=== PATIENT | female | born 1975 | race Caucasian/White ===

== ENCOUNTER → 2020-08-09 12:54 | Outpatient (BNVA) | payer OTHER, SELFPAY | PROVIDERS: PCP Internal Medicine; Visit Provider Surgery | DX: R22.2 Localized swelling, mass and lump, trunk (principal) | CPT/HCPCS: 99202 ==

== ENCOUNTER 2020-08-10 10:37 | Outpatient (REF) | payer OTHER, SELFPAY ==
[2020-08-10 14:01] LABS: MANUAL DIFF FLAG NO
[2020-08-10 14:12] LABS: Basophils Absolute Auto 0.1 X10*3/uL (0.0-0.2); Basophils Percent Auto 0.9 % (0-2); Eosinophils Absolute Auto 0.4 X10*3/uL (0.0-0.4); Eosinophils Percent Auto 6.3 % (0-4); Hematocrit 36.5 % (37-47); Hemoglobin 11.8 g/dl (12.0-16.0); Imm Gran Abs Auto 0.01 X10*3/uL (0.00-0.03); Imm Gran Pct Auto 0.2 % (0.0-0.4); Lymphocytes Percent Auto 34.7 % (20-40); Mean Corpuscular HGB Conc 32.3 g/dl (31.0-35.0); Mean Corpuscular Hemoglobin 30.4 pg (27.0-33.0); Mean Corpuscular Volume 94.1 fL (80-98); Mean Platelet Volume 9.7 fL (9.4-12.3); Monocytes Absolute Auto 0.5 X10*3/uL (0.1-1.2); Monocytes Percent Auto 8.8 % (2-11); Neutrophils Absolute Auto 2.9 X10*3/uL (2.0-8.3); Neutrophils Percent Auto 49.1 % (45-73); Platelet Count 338 X10*3/uL (160-400); Red Blood Count 3.88 X10*6/uL (4.20-5.50); Red Cell Distribution Width 13.8 % (11.0-16.0); White Blood Count 5.9 X10*3/uL (4.8-10.8)
[2020-08-10 14:35] LABS: Alanine Aminotransferase 31 U/L (0-31); Anion Gap 12 (12-20); Aspartate Amino Transferase 25 U/L (5-31); Blood Urea Nitrogen 18 mg/dL (9-16); Calcium 8.8 mg/dL (8.4-10.2); Carbon Dioxide 26 mmol/L (22-29); Chloride 105 mmol/L (96-108); Cholesterol 204 mg/dL; Estimated Glomerular Filt Rate > 60; Glucose Fasting 87 mg/dL (60-99); HDL Cholesterol 71 mg/dL; LDL Cholesterol Calculated 122 mg/dl; Potassium 4.3 mmol/L (3.3-5.1); Sodium 139 mmol/L (135-145); Triglycerides 58 mg/dL
[2020-08-10 14:43] LABS: TSH reflex Free T4 1.62 uIU/mL (0.32-4.0)
[2020-08-13 10:52] LABS: TS Negative Control Passed; TS Panel A 2; TS Panel B 7; TS Positive Control Passed; TSpotTB BORDERLINE (SeeBelow)
== END 2020-08-10 10:38 | disposition home or self-care (01) ==
LOC: HO.HMGCLDS 10:37
PROVIDERS: PCP Internal Medicine; Visit Provider Internal Medicine
DX: Z00.01 Encounter for general adult medical examination with abnormal findings (principal); K21.9 Gastro-esophageal reflux disease without esophagitis; R76.11 Nonspecific reaction to tuberculin skin test without active tuberculosis; I10 Essential (primary) hypertension
CPT/HCPCS: 36415; 80048; 80061; 84443; 84450; 84460; 85025; 86481

== ENCOUNTER 2020-08-16 13:55 | Outpatient (REF) | payer OTHER, SELFPAY ==
--- NOTE | ~2020-08-16 | XR_ITS ---
EXAMINATION: XR CHEST CLINICAL INFORMATION: Nonspecific reaction to tuberculin skin test COMPARISON: None TECHNIQUE: 2 views of the chest were obtained. FINDINGS: The lungs are well expanded. There is no focal consolidation, edema, or effusion. No pneumothorax. The cardiomediastinal silhouette is within normal limits. No acute osseous abnormality. XR/XR chest 2V IMPRESSION: Clear lungs.
== END 2020-08-16 13:56 | disposition home or self-care (01) ==
LOC: HO.XRAY 13:55
PROVIDERS: PCP Internal Medicine; Visit Provider Internal Medicine
DX: R76.11 Nonspecific reaction to tuberculin skin test without active tuberculosis (principal)
CPT/HCPCS: 71046

== ENCOUNTER 2020-08-21 13:00 | Outpatient (RCR) | payer OTHER, SELFPAY | END 2020-10-10 12:00 | disposition other institution (70) | LOC: HO.OT 13:00 | PROVIDERS: PCP Internal Medicine; Visit Provider Internal Medicine | DX: M77.01 Medial epicondylitis, right elbow (principal) | CPT/HCPCS: 97033; 97110; 97140; 97165 ==

== ENCOUNTER → 2020-09-11 07:37 | Outpatient (BNVA) | payer OTHER, SELFPAY | PROVIDERS: PCP Internal Medicine; Visit Provider Physician Assistant | DX: K21.9 Gastro-esophageal reflux disease without esophagitis (principal) | CPT/HCPCS: Q3014 ==

== ENCOUNTER 2020-10-12 12:55 | Day surgery (SDC) | payer OTHER, SELFPAY ==
--- NOTE | 2020-10-10 14:20 | HO.ANESPROP2 ---
Documented by User: Yamileth Hinton 10/10/20 14:21 HPI - Anesthesia Eval Consult details Narrative: 45yo F for Upper Endoscopy PMFSH Active Problems Active Problems: All Active Problems (Updated 09/11/20 @ 08:23 by Tram Julio PA-C) Muscle spasm (Acute) Subcutaneous mass of back (Acute) Nodule of skin of both lower extremities (Acute) Lump of skin of back (Acute) Positive PPD, treated (Acute) H/O cervical polypectomy (Acute) Breast calcification, right (Acute) Medial epicondylitis, right elbow (Acute) Encounter for general adult medical examination with abnormal findings (Acute) Chronic GERD (Acute) Past Medical History Medical History Breast calcification, right Chronic GERD COVID-19 virus infection Lump of skin of back Medial epicondylitis, right elbow Nodule of skin of both lower extremities Positive PPD, treated Subcutaneous mass of back Family History Family History Mother No problems noted. Father Hx of arterial ischemic stroke Hypertension Hyperlipemia Diabetes Surgical History Surgical History H/O cervical polypectomy Social History Social History Household Members: Significant Other Alcohol intake: current Alcohol intake frequency: holidays/special occasions only Patient Tobacco Use Status: Never used Tobacco Use of substances other than those prescribed or required for medical reasons: No Are you DNR?: No Advance Directives: No Advance Directives Information Provided: Yes Recently lost weight without trying: No Nutrition Risks: No Nutritional Risk Patient : No FDLMP: 10/01/20 Current occupational status: employed 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 Meds Allergies Allergy/AdvReac Type Severity Reaction Status Date / Time No Known Allergies Allergy Verified 10/08/20 15:53 Home Medications Medication Instructions Recorded Confirmed Last Taken Type cholecalciferol (vitamin D3) 25 25 mcg PO DAILY 07/13/20 10/08/20 Unknown History mcg (1,000 unit) capsule magnesium 200 mg tablet 200 mg PO DAILY 07/13/20 10/08/20 Unknown History multivitamin 1 tab PO DAILY 07/13/20 10/08/20 Unknown History omeprazole 20 mg capsule,delayed 20 mg PO DAILY 07/13/20 10/08/20 10/12/20 07:15 History release Exam Exam Date and Time: October 10, 2020 142 Assessment and Plan Assessment Anesthesia Assessment: Chart Reviewed Documented by User: Lupe Christian 10/12/20 13:52 PMFSH Past Medical History Medical History Breast calcification, right Chronic GERD COVID-19 virus infection Lump of skin of back Medial epicondylitis, right elbow Nodule of skin of both lower extremities Positive PPD, treated Subcutaneous mass of back Family History Family History Mother No problems noted. Father Hx of arterial ischemic stroke Hypertension Hyperlipemia Diabetes Surgical History Surgical History H/O cervical polypectomy Social History Social History Household Members: Significant Other Alcohol intake: current Alcohol intake frequency: holidays/special occasions only Patient Tobacco Use Status: Never used Tobacco Use of substances other than those prescribed or required for medical reasons: No Are you DNR?: No Advance Directives: No Advance Directives Information Provided: Yes Recently lost weight without trying: No Nutrition Risks: No Nutritional Risk Patient : No FDLMP: 10/01/20 Current occupational status: employed 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 Meds Allergies Allergy/AdvReac Type Severity Reaction Status Date / Time No Known Allergies Allergy Verified 10/08/20 15:53 Home Medications Medication Instructions Recorded Confirmed Last Taken Type cholecalciferol (vitamin D3) 25 25 mcg PO DAILY 07/13/20 10/08/20 Unknown History mcg (1,000 unit) capsule magnesium 200 mg tablet 200 mg PO DAILY 07/13/20 10/08/20 Unknown History multivitamin 1 tab PO DAILY 07/13/20 10/08/20 Unknown History omeprazole 20 mg capsule,delayed 20 mg PO DAILY 07/13/20 10/08/20 10/12/20 07:15 History release Exam Airway Mallampati Class: II TM Dist: >3cm Neck ROM: Full Assessment and Plan Assessment Anesthesia Assessment: Anesthesia Plan Discussed and Chart Reviewed Final Anesthetic Review NPO: Yes ASA Class: II Final Preanesthetic Review: No Changes in Pt Med Stat, Meds/Allgs Chart Reviewed, Consent Obtained/Reviewed and Anes Risks/Benef Reviewed Patient Risk: Low Procedure Risk: Low Assessment/Block/Sedation in SS: Assess/Block/Sedation-SS Anesthetic Plan Anesthetic Plan: MAC: Disposition: Standard PACU
[2020-10-12 13:00] VITALS: BMI 33.0
[2020-10-12 13:09] VITALS: BP 121/71; PULSE 76; RESP 16; TEMP 37.4; O2SAT 98
[2020-10-12 13:17] LABS: UPreg QC Valid YES; Urine Pregnancy NEGATIVE (NEGATIVE)
[2020-10-12] MEDS: Lactated Ringers 1,000 ML 100 ML IVCONT (13:27)
--- NOTE | 2020-10-12 14:23 | MHC.SHP ---
Pre-Procedural Eval Section A The patient is an INPATIENT: No Changes since office visit: Yes Patient answered all questions; No Cold of Flu in the past 2 weeks, No New Medical Problems and No Changes in Medication The History & Physical has been completed within 30 days and I have reviewed it.: Yes Section B Chief Complaint: Chronic Gerd Allergies: Allergies Allergy/AdvReac Type Severity Reaction Status Date / Time No Known Allergies Allergy Verified 10/08/20 15:53 Plan I have reviewed the history and physical and performed a pertinent physical examination on my patient. No changes have occurred unless specified.
--- NOTE | 2020-10-12 14:23 | PM.OP ---
Brief Operative Note Date of Service: 10/12/20 Pre-op diagnosis: GERD, early satiety, dysphagia to liquids Post-op diagnosis: other (GERD, gastritis, gastric polyps) Procedure: FLEXIBLE TRANSORAL UPPER GASTROINTESTINAL ENDOSCOPY WITH BIOPSIES Consent: Indications for the procedure and potential complications of bleeding, perforation, reaction to medications and missed diagnosis were discussed with the patient and informed consent was obtained. Instrument: Olympus GIF H 190 mid size upper endoscope Monitoring: Vital signs and clinical assessment, continuous EKG monitoring, Pulse oximetry, Carbon Dioxide monitoring and blood pressure monitoring were done throughout the procedure. Procedure: The patient was placed in the left lateral decubitis position and pre-procedure medications were administered and a bite block was placed. The endoscope was inserted into the mouth and advanced under direct vision to the third part of duodenum. A careful inspection was made as the upper endoscope was withdrawn including a retroflexed examination of the proximal stomach; Findings and interventions are described below. Findings: Larynx: Normal Esophagus: Tortuous esophagus with increased tertiary contractions without stricture or ring - biopsies were obtained from proximal esophagus to check for EOE. GE junction at 36 cms.. No esophagitis or Ambrosio Stomach: Multiple 5-8 mm benign-appearing polyps in the gastric fundus and body - biopsied. Mild gastric erythema. Biopsies were obtained. Grade 2 flap valve on retroflexed examination of the cardia. Duodenum: Normal bulb and descending duodenum Intervention: Biopsies as noted above Impression and Post Procedure Diagnosis: Endoscopy Findings: ESOPHAGUS: Tortuous esophagus with increased tertiary contractions without stricture or ring - biopsies were obtained from proximal esophagus to check for EOE. GE junction at 36 cms.. No esophagitis or Ambrosio STOMACH: Gastritis and gastric polyps Plan: Await pathology results Patient has an appointment on 10/29/20 [facility] with SUZI Orantes. Above findings were reviewed with the patient and GERD and Gastritic polyps handouts were given in the discharge area Surgeon: Karli De Anda MD Anesthesia: MAC (Yanira Pham CRNA) Was an Operations Support Specialist used for this Procedure?: No Operations Support Specialist: Michael Grant Estimated blood loss (mL): 0 Pathology: other (A. Gastric antrum, B. Gastric polyp, C. proximal esophagus) Condition: stable Disposition: PACU
[2020-10-12 14:45] VITALS: BP 118/67; PULSE 76; RESP 16; TEMP 36.8; O2SAT 100
[2020-10-12 14:50] VITALS: PULSE 70; RESP 18; O2SAT 100
[2020-10-12 15:00] VITALS: BP 122/72; PULSE 70; RESP 18; O2SAT 100
== END 2020-10-12 15:47 | disposition home or self-care (01) ==
PROVIDERS: Nurse Practitioner; PCP Internal Medicine; Visit Provider Internal Medicine Gastroenterology
PROC: 0DJ08ZZ Inspection of Upper Intestinal Tract, Via Natural or Artificial Opening Endoscopic (ICD-10-PCS; CPT 43235; principal; 2020-10-12 14:20)
DX: K21.9 Gastro-esophageal reflux disease without esophagitis (principal); K29.50 Unspecified chronic gastritis without bleeding; K31.7 Polyp of stomach and duodenum; Z79.899 Other long term (current) drug therapy; Z86.16 Personal history of COVID-19
CPT/HCPCS: 43239; 81025; 88305; 88342